=== PATIENT | female | born 1950 | race Caucasian/White ===

== ENCOUNTER 2018-06-19 13:55 | Emergency (ER) | payer MEDICARE, MEDICAID ==
[~2018-06-19] VITALS: Ht 154.9 cm; Wt 80.0 kg
--- NOTE | 2018-06-19 14:00 | NUR ---
Called patient. Per family member, she is in the restroom.
--- NOTE | 2018-06-19 14:36 | NUR ---
PT TO RAD.
--- NOTE | 2018-06-19 14:50 | NUR ---
PT C/O COY AND RIGHT SHOULDER PAIN AFTER TIA 10 DAYS AGO. PT DENIES ANY VISUAL CHANGES. PT ON MONITOR. VSS.
[2018-06-19 14:53] LABS: BASOPHILS # (AUTO) 0.04 x10^3/uL (0-0.1); BASOPHILS % (AUTO) 1 % (0-1); EOSINOPHILS # (AUTO) 0.22 x10^3/uL (0-0.4); EOSINOPHILS % (AUTO) 4 % (1-7); LYMPHOCYTES # (AUTO) 1.64 x10^3/uL (1-3.4); LYMPHOCYTES % (AUTO) 28 % (22-44); MD NO; MEAN CORPUSCULAR HEMOGLOBIN 31.5 pg (27.0-34.8); MEAN CORPUSCULAR HGB CONC 33.5 g/dL (32.4-35.8); MEAN PLATELET VOLUME 8.1 fL (7.4-10.4); MONOCYTES # (AUTO) 0.47 x10^3/uL (0.2-0.8); MONOCYTES % (AUTO) 8 % (2-9); NEUTROPHILS # (AUTO) 3.57 x10^3/uL (1.8-6.8); NEUTROPHILS % (AUTO) 60 % (42-75); PLATELET COUNT 301 x10^3/uL (130-400); RED BLOOD COUNT 4.94 x10^6/uL (3.82-5.3); RED CELL DISTRIBUTION WIDTH 12.6 % (9.6-15.2)
[2018-06-19 14:58] LABS: ALBUMIN 3.9 g/dL (3.4-5.0); ANION GAP 7 mmol/L (5-15); CALCIUM 8.4 mg/dL (8.5-10.1); CHLORIDE 109 mmol/L (98-107); CREATININE 0.73 mg/dL (0.55-1.02)
[2018-06-19 15:16] LABS: INTERNATIONAL NORMALIZED RATIO 0.95 (0.93-1.1); PROTHROMBIN TIME 10.1 Seconds (9.6-11.5)
[2018-06-19 16:07] LABS: MICROSCOPIC NOT IND
[2018-06-19 16:12] LABS: CULTURE INDICATED? NO
--- NOTE | 2018-06-19 16:30 | NUR ---
REPORT TO [facility].
[2018-06-19 16:57] VITALS: BP 142/72
--- NOTE | 2018-06-19 16:57 | NUR ---
Patient/Caregiver given discharge instructions and they have confirmed that they understand the instructions. Patient ambulatory with steady gait.
== END 2018-06-19 16:58 | disposition home or self-care (01) ==
LOC: ED 16:52
DX: R41.82 Altered mental status, unspecified (principal); R07.89 Other chest pain; R53.1 Weakness; R51 Headache; M25.511 Pain in right shoulder; R13.0 Aphagia; R11.0 Nausea
CPT/HCPCS: 36415; 70450; 71045; 80048; 81003; 82040; 85025; 85610; 85730; 93005; 99284